=== PATIENT | female | born 2000 | race Caucasian/White ===

== ENCOUNTER 2021-03-09 07:34 | Inpatient (IN) | payer MEDICAID, OTHER ==
[2021-03-09] VITALS (47 sets, daily range): BP systolic 12–128; BP diastolic 51–90
[~2021-03-09] VITALS: Ht 160 cm; Wt 105.0 kg
[2021-03-09] MEDS ORDERED: D5 LR IV SOLUTION 1,000 ML IV ONE (07:57)
[2021-03-09] MEDS ORDERED: ACYC500V IV (08:01)
[2021-03-09] MEDS ORDERED: PREN-8 PO (08:01)
[2021-03-09] MEDS ORDERED: AMPICILLIN FOR IV USE 2,000 MG in WATER (STERILE) FOR INJECTION 14.8 ML IV SCH ×2 (08:07→08:09)
[2021-03-09] MEDS ORDERED: MINERAL OIL CONCENTRATE 99.9% 15 ML UDC TOP PRN (08:15)
[2021-03-09] MEDS ORDERED: D5 LR IV SOLUTION 1,000 ML IV SCH (08:15)
[2021-03-09 08:36] LABS: BASOPHILS % (AUTO) 0 % (0-10); EOSINOPHILS # (AUTO) 0.2 10^3/uL (0.0-0.3); EOSINOPHILS % (AUTO) 1 % (0-10); HEMATOCRIT 35 % (35-52); HEMOGLOBIN 11.5 g/dL (11.5-16.0); LYMPHOCYTES # (AUTO) 3.2 10^3/uL (1.0-4.0); LYMPHOCYTES % (AUTO) 21 % (12-44); MEAN CORPUSCULAR HEMOGLOBIN 27 pg (25-34); MEAN CORPUSCULAR HGB CONC 33 g/dL (32-36); MEAN CORPUSCULAR VOLUME 82 fL (80-99); MEAN PLATELET VOLUME 10.3 fL (9.0-12.2); MONOCYTES # (AUTO) 1.4 10^3/uL (0.0-1.0); MONOCYTES % (AUTO) 9 % (0-12); NEUTROPHILS # (AUTO) 10.3 10^3/uL (1.8-7.8); NEUTROPHILS % (AUTO) 68 % (42-75); PLATELET COUNT 294 10^3/uL (130-400); WHITE BLOOD COUNT 15.2 10^3/uL (4.3-11.0)
[2021-03-09] MEDS ORDERED: fentaNYL 2 mcg/ml BUPIVA 0.125 100 ML ONE (08:42)
[2021-03-09 08:46] LABS: EOSINOPHILS % (MANUAL) 1 %; LYMPHOCYTES % (MANUAL) 24 %; MONOCYTES % (MANUAL) 5 %; NEUTROPHILS % (MANUAL) 68 %; RBC MORPH NORMAL; REACTIVE LYMPHOCYTES 2 %
[2021-03-09] MEDS ORDERED: BUTORPHANOL INJ 2 MG/ML (STADOL) VIAL ONE (09:24)
[2021-03-09] MEDS ORDERED: BUTORPHANOL INJ 2 MG/ML (STADOL) VIAL IV ONE (09:30)
[2021-03-09] MEDS ORDERED: fentaNYL INJ 100 MCG/2 ML AMP ONE (09:35)
[2021-03-09] MEDS ORDERED: ONDANSETRON 4 MG/2 ML (SDV) Z0FRAN ONE (09:36)
[2021-03-09] MEDS ORDERED: BUPIVACAINE 0.25% 30 ML (SENSORCAINE) VIAL ONE (09:36)
[2021-03-09] MEDS ORDERED: fentaNYL INJ 100 MCG/2 ML AMP INJ ONE (10:45)
[2021-03-09] MEDS ORDERED: LACTATED RINGERS 1,000 ML IV ONE ×2 (10:45)
[2021-03-09] MEDS ORDERED: ONDANSETRON 4 MG/2 ML (SDV) Z0FRAN IV PRN (10:45)
[2021-03-09] MEDS ORDERED: EPIDURAL (fentaNYL 2 MCG/ML BUPIVA 0.125%)100 ML BAG EPI PRN (10:45)
[2021-03-09] MEDS ORDERED: NALOXONE 0.4 MG/ML 1 ML (NARCAN) VIAL IV PRN (10:45)
[2021-03-09] MEDS ORDERED: AMPICILLIN FOR IV USE 1,000 MG in WATER (STERILE) FOR INJECTION 7.4 ML IV SCH ×4 (12:15)
[2021-03-09] MEDS ORDERED: LIDOCAINE/EPI 2% 1:200,00 (XYLOCAINE) 20 ML VIAL ONE (13:39)
[2021-03-09] MEDS ORDERED: CATHETER FLUSH 10 ML SYR IV SCH ×2 (14:00→22:00)
--- NOTE | 2021-03-09 14:22 | History & Physical-OB ---
OB - Chief Complaint & HPI Date/Time Date of Admission: Date of Admission: March 09, 2021 at 08:07 Date seen by a Provider: March 09, 2021 Time Seen by a Provider: 08:30 Chief Complaint/History OB-Reason for Admission/Chief: Rupture of Membranes Hx : 2 Hx Para: 0 Expected Date of Delivery: Mar 13, 2021 Gestational Age in Weeks: 39 Gestational Age in Days: 3 Other reason for admission: 20 Year old at 39 6/7 weeks, no local patient, presents with complaint of rupture of membranes. She was 5 cm dilated on admission. Also reported to be GBS +, no allergies States that PNC was started in [place] and then she transferred to [place] at 34 weeks. She is reportedly visiting her grandmother in [place] this weekend. Reports having leakage of clear fluid at approximately 0600 today. No bleeding, good movement. Contractions every 3-4 minutes are moderate. On my evaluation, she is hanging on to the bedframe and requesting something for pain. is uncomplicated per the patient. Records were requested from [place] and have been reviewed. Last visit there was 03/04/2021 History of Labs Last US on February 11 with EFW 5#10 ounces. A-/- Rhogam 12/23/2020 GBE + History of Genital herpes with valacyclovir 500 mg po bid started on 02/04/2021 UDS + THC on 02/04/2021 TDaP 01/06/2021 RUB I VDRL NR HBsAg - HIV - Allergies and Home Medications Allergies Coded Allergies: No Known Drug Allergies (Unverified , 03/28/16) Home Medications Acyclovir Sodium 500 Mg Vial, 500 MG IV DAILY, (Reported) Last Action: New Order Vit W-Ca,Fe,FA(<1 mg) 1 Each Tablet, 1 EACH PO DAILY, (Reported) Last Action: New Order Patient Home Medication List Home Medication List Reviewed: Yes OB - History Hx of Present Ultrasounds: Normal mid trimester US Obstetrical Complications: None Medical Complications: None Information Induced Hypertension: No Maternal Gestational Diabetes: No Hemorrhage: No Obstetrical History Hx : 2 Hx Para: 0 Hx # Term Pregnancies: 0 Hx # Pregnancies: 0 Number of Living Children: 0 Hx Termination: No Hx Total # of Abortions (Spona: 1 Hx Multiple Gestation: No Hx Ectopic : No Hx Stillbirth: No Hx Complication: No Hx Induced Hypertens: No Hx Maternal Gestational Diabet: No Hx Hemorrhage: No Delivery History Hx Blood Disorders: No Adverse Rxn to Tranfusion: No Patient Past Medical History History of HSV, on Valtrex prophylaxis. Unk last outbreak Social History/Family History Alcohol Use: Denies Use Recreational Drug Use: Yes Smoking Cessation: Current every day smoker 2nd Hand Smoke Exposure: Yes Immunizations Hepatitis A: No Hepatitis B: Yes Tetanus Booster (TDap): Less than 5yrs (12/2020) Rubella: immune RPR/VDRL: Negative GBS Status: Positive HBsAG: Negative OB - Admission Exam Physical Exam Vitals: Vital Signs 03/09/21 03/09/21 11:26 13:40 Temp 36.4 Pulse 61 Resp 18 B/P (MAP) 107/60 (76) Pulse Ox 96 O2 Delivery Room Air Heart: Rhythm Normal Lungs: Clear Abdomen: Gravid Extremities: Edema Cervical Dilatation: 5cm Effacement: 75% Station: -2 Membranes: Ruptured Amniotic Fluid: Clear Heart Rate: 130's Accelerations: Accelerations Present Decelerations: No Decelerations Short Term Variability: Present Densitometer Reader Variability: Average (6-25) Contractions on Admission: < 5 Minutes Apart Labs Laboratory Tests Test 03/09/21 08:15 Range/Units White Blood Count 15.2 H 4.3-11.0 10^3/uL Red Blood Count 4.25 3.80-5.11 10^6/uL Hemoglobin 11.5 11.5-16.0 g/dL Hematocrit 35 35-52 % Mean Corpuscular Volume 82 80-99 fL Mean Corpuscular Hemoglobin 27 25-34 pg Mean Corpuscular Hemoglobin Concent 33 32-36 g/dL Red Cell Distribution Width 14.0 10.0-14.5 % Platelet Count 294 130-400 10^3/uL Mean Platelet Volume 10.3 9.0-12.2 fL Immature Granulocyte % (Auto) 1 % Neutrophils (%) (Auto) 68 42-75 % Lymphocytes (%) (Auto) 21 12-44 % Monocytes (%) (Auto) 9 0-12 % Eosinophils (%) (Auto) 1 0-10 % Basophils (%) (Auto) 0 0-10 % Neutrophils # (Auto) 10.3 H 1.8-7.8 10^3/uL Lymphocytes # (Auto) 3.2 1.0-4.0 10^3/uL Monocytes # (Auto) 1.4 H 0.0-1.0 10^3/uL Eosinophils # (Auto) 0.2 0.0-0.3 10^3/uL Basophils # (Auto) 0.0 0.0-0.1 10^3/uL Immature Granulocyte # (Auto) 0.1 0.0-0.1 10^3/uL Neutrophils % (Manual) 68 % Lymphocytes % (Manual) 24 % Monocytes % (Manual) 5 % Eosinophils % (Manual) 1 % Reactive Lymphocytes 2 % Blood Morphology Comment NORMAL OB - Assessment/Plan/Diagnosis Assessment Assessment: active labor, rupture of membranes Admission Dx Rupture of membranes 39 week gestation No local physician History of HSV Admission Status: Inpatient Order (span 2 midnights) Reason for Inpatient Admission: labor Plan Plan: Expectant Management (anticipate ), Other (Will obtain epidural when she is ready. Plan . No local Peds as she does not have local physican. Augmentation only as necessary) GURDEEP MELGOZA DO March 09, 2021 14:22
[2021-03-09] MEDS ORDERED: VALA500T7 PO (14:26)
[2021-03-09] MEDS ORDERED: OXYTOCIN PRE-MIX DRIP 500 ML IV ONE (15:10)
[2021-03-09] MEDS: OXYTOCIN PRE-MIX DRIP 500 ML IV SCH ×2 (15:37→16:49)
--- NOTE | 2021-03-09 15:50 | OB Labor & Delivery Record ---
Vag Delivery Note Vag Delivery Note Date of Delivery: 03/09/21 Preoperative Diagnosis: Mechelle Huddleston is a 20 /Para 2 / 0,Gestational Age 39 4/7 weeks with SROM, GBS +, H/o HSV on valacyclovir for prophylaxis (no active lesions noted on exam) Postoperative Diagnosis: Same Surgeon: GURDEEP MELGOZA Anesthesia: epidural Delivery Type: spontaneous vaginal Findings: Viable female , apgars 8/9, weight 6#13 ounces Lacerations: left anterior vaginal Intact placenta with 3 vessel cord. Nuchal cord/ body cord x 1 delivered through . No shoulder dystocia Estimated Blood Loss: 200 ml Complications: None Condition: Stable Description of Procedure: The patient is a 20 year old female who presented with complaint of rupture of membranes. She does not have a local physician as she is visiting from [place]. She was admitted and informed consent was obtained. Her labor course was remarkable for GBS prophylaxis with ampicillin (received 2 doses). She progressed to complete dilatation and began to push. She was then set up for delivery. The 's head was delivered atraumatically in the LULA position. The shoulders and remainder of the 's body were then delivered without difficulty. Upon delivery, the head was held below the level of the perineum and the mouth and nares were bulb suctioned. The cord was doubly clamped and cut and the infant was handed off to the pediatric staff. An intact placenta with 3-vessel cord delivered via Letty and there was found to be minimal bleeding.~ Vigorous fundal massage was performed and the fundus was found to be firm. IV oxytocin was given. Examination of the vagina and perineum revealed a left anterior labial laceration repaired with 1 figure of 8 stitch with 3-0 vicryl suture rapide. Following the repair, sponge, instrument and needle counts were correct. Mom and baby were both in stable condition in the labor suite. Vitals - Labs Vital Signs - I&O Vital Signs Date Time Temp Pulse Resp B/P (MAP) Pulse Ox O2 Delivery O2 Flow Rate FiO2 03/09/21 15:10 75 18 115/61 (79) Room Air 03/09/21 14:55 68 18 105/56 (72) Room Air 03/09/21 14:40 87 18 108/67 (81) Room Air 03/09/21 14:25 66 18 115/58 (77) Room Air 03/09/21 14:10 69 18 97/57 (70) Room Air 03/09/21 13:55 81 18 115/56 (75) Room Air 03/09/21 13:40 36.4 61 18 107/60 (76) Room Air 03/09/21 13:25 64 18 115/63 (80) Room Air 03/09/21 13:05 55 18 116/67 (83) Room Air 03/09/21 12:55 60 18 116/63 (80) Room Air 03/09/21 12:40 36.2 60 18 115/70 (85) Room Air 03/09/21 12:25 86 18 119/77 (91) Room Air 03/09/21 12:10 80 18 100/59 (73) Room Air 03/09/21 11:55 66 18 93/57 (69) Room Air 03/09/21 11:35 90 18 101/57 (72) Room Air 03/09/21 11:30 63 18 104/57 (73) Room Air 03/09/21 11:26 83 18 101/61 (74) 96 Room Air 03/09/21 11:23 67 18 107/59 (75) 96 Room Air 03/09/21 11:18 95 18 105/51 (69) 97 Room Air 03/09/21 11:10 67 18 108/58 (75) 95 Room Air 03/09/21 11:05 68 18 107/54 (71) 97 Room Air 03/09/21 11:00 66 18 109/53 (71) 97 Room Air 03/09/21 10:51 65 18 106/60 (75) 97 Room Air 03/09/21 10:48 76 18 105/59 (74) 97 Room Air 03/09/21 10:45 76 18 109/51 (70) 95 Room Air 03/09/21 10:39 82 18 110/58 (75) 95 Room Air 03/09/21 10:36 86 18 115/58 (77) 97 Room Air 03/09/21 10:33 91 18 104/60 (75) 97 Room Air 03/09/21 10:30 90 18 101/59 (73) 97 Room Air 03/09/21 10:27 36.3 76 18 98/55 (69) Room Air 03/09/21 10:24 80 18 105/56 (72) 96 Room Air 03/09/21 10:21 75 18 112/62 (79) 97 Room Air 03/09/21 10:18 82 18 107/62 (77) 97 Room Air 03/09/21 10:10 80 18 118/74 (89) 99 Room Air 03/09/21 09:35 84 18 122/90 (101) 03/09/21 07:52 36.5 104 18 96 Room Air Labs Laboratory Tests 03/09/21 08:15: White Blood Count 15.2H, Red Blood Count 4.25, Hemoglobin 11.5, Hematocrit 35, Mean Corpuscular Volume 82, Mean Corpuscular Hemoglobin 27, Mean Corpuscular Hemoglobin Concent 33, Red Cell Distribution Width 14.0, Platelet Count 294, Mean Platelet Volume 10.3, Immature Granulocyte % (Auto) 1, Neutrophils (%) (Auto) 68, Lymphocytes (%) (Auto) 21, Monocytes (%) (Auto) 9, Eosinophils (%) (Auto) 1, Basophils (%) (Auto) 0, Neutrophils # (Auto) 10.3H, Lymphocytes # (Auto) 3.2, Monocytes # (Auto) 1.4H, Eosinophils # (Auto) 0.2, Basophils # (Auto) 0.0, Immature Granulocyte # (Auto) 0.1, Neutrophils % (Manual) 68, Lymphocytes % (Manual) 24, Monocytes % (Manual) 5, Eosinophils % (Manual) 1, Reactive Lymphocytes 2, Blood Morphology Comment NORMAL GURDEEP MELGOZA March 09, 2021 15:50
[2021-03-09] MEDS ORDERED: WITCH HAZEL(TUCKS) 40 EA JAR TOP PRN (16:00)
[2021-03-09] MEDS ORDERED: BENZOCAINE/MENTHOL (DERMOPLAST) 56 ML CAN TP PRN (16:00)
[2021-03-09] MEDS ORDERED: MEASLES,MUMPS,RUBELLA 1 EA INJ SQ ONE (16:00)
[2021-03-09] MEDS ORDERED: TETANUS,DIPTH,PERTUSS P/F (BOOSTRIX) 0.5 ML VIAL IM ONE (16:00)
[2021-03-09] MEDS: IBUPROFEN 600 MG (MOTRIN) TAB PO SCH ×2 (17:44→23:29)
[2021-03-09] MEDS ORDERED: CLOTRIMAZOLE 1% CREAM (LOTRIMIN) 30 GM TOP SCH (21:00)
[2021-03-09] MEDS: DOCUSATE SODIUM 100 MG (COLACE) CAP PO SCH (21:17)
[2021-03-09] MEDS: ACETAMINOPHEN 500 MG TAB (TYLENOL) PO SCH (21:17)
[2021-03-09] MEDS ORDERED: BETAMETHASONE/CLOTRIM CREAM (LOTRISONE) 45 GM TP ONE (22:12)
[2021-03-10 03:54] LABS: BASOPHILS # (AUTO) 0.1 10^3/uL (0.0-0.1); BASOPHILS % (AUTO) 0 % (0-10); EOSINOPHILS # (AUTO) 0.2 10^3/uL (0.0-0.3); EOSINOPHILS % (AUTO) 2 % (0-10); HEMATOCRIT 30 % (35-52); HEMOGLOBIN 9.7 g/dL (11.5-16.0); LYMPHOCYTES # (AUTO) 3.8 10^3/uL (1.0-4.0); LYMPHOCYTES % (AUTO) 30 % (12-44); MEAN CORPUSCULAR HEMOGLOBIN 27 pg (25-34); MEAN CORPUSCULAR HGB CONC 32 g/dL (32-36); MEAN CORPUSCULAR VOLUME 84 fL (80-99); MEAN PLATELET VOLUME 10.3 fL (9.0-12.2); MONOCYTES # (AUTO) 1.4 10^3/uL (0.0-1.0); MONOCYTES % (AUTO) 11 % (0-12); NEUTROPHILS # (AUTO) 7.3 10^3/uL (1.8-7.8); NEUTROPHILS % (AUTO) 57 % (42-75); PLATELET COUNT 242 10^3/uL (130-400); WHITE BLOOD COUNT 12.8 10^3/uL (4.3-11.0)
[2021-03-10 04:18] VITALS: BP 112/63
[2021-03-10] MEDS: ACETAMINOPHEN 500 MG TAB (TYLENOL) PO SCH ×2 (04:18→12:22)
[2021-03-10] MEDS: IBUPROFEN 600 MG (MOTRIN) TAB PO SCH ×3 (06:41→18:29)
[2021-03-10] MEDS ORDERED: PRENATAL VITAMIN 1 EA TAB PO SCH (07:00)
[2021-03-10] MEDS ORDERED: FERROUS SULF 325 MG (IRON) TAB PO SCH (09:00)
[2021-03-10 09:30] VITALS: BP 106/58
[2021-03-10] MEDS: DOCUSATE SODIUM 100 MG (COLACE) CAP PO SCH (09:41)
--- NOTE | 2021-03-10 13:22 | Postpartum Progress Note ---
Note Note Day # 1 s/p GBS +, received 2 doses of Amp HSV +, prophylactic valacyclovir until delivery dermatitis Subjective: Patient is without complaints. Ambulating, voiding. Tolerating a regular diet without nausea or vomiting. Normal lochia. Pain is well controlled with oral pain medications. [] feeding. Circular lesions with central clearing noticed on her foot at delivery. she states she had been given a nystatin powder to use on it bc was told it is a fungus. However, she has other lesions and these appear to be tinea. Treated with clortrimazole. However, initially payroll supervisor brought up betamethasone/clortrimazole. This works as well, but will send with rx for clotrimazole. Nystatin does not treat tinea. Would be effective for the creases which are likely fungal. Objective: 03/10/21 03/10/21 04:18 09:30 Temp 36.2 36.5 Pulse 73 91 Resp 18 18 B/P (MAP) 112/63 (79) 106/58 (74) Pulse Ox 97 99 O2 Delivery Room Air Room Air 03/10/21 00:00 Intake Total 1507.4 ml Balance 1507.4 ml Laboratory Tests Test 03/10/21 03:36 Range/Units White Blood Count 12.8 H 4.3-11.0 10^3/uL Red Blood Count 3.61 L 3.80-5.11 10^6/uL Hemoglobin 9.7 L 11.5-16.0 g/dL Hematocrit 30 L 35-52 % Mean Corpuscular Volume 84 80-99 fL Mean Corpuscular Hemoglobin 27 25-34 pg Mean Corpuscular Hemoglobin Concent 32 32-36 g/dL Red Cell Distribution Width 14.0 10.0-14.5 % Platelet Count 242 130-400 10^3/uL Mean Platelet Volume 10.3 9.0-12.2 fL Immature Granulocyte % (Auto) 0 % Neutrophils (%) (Auto) 57 42-75 % Lymphocytes (%) (Auto) 30 12-44 % Monocytes (%) (Auto) 11 0-12 % Eosinophils (%) (Auto) 2 0-10 % Basophils (%) (Auto) 0 0-10 % Neutrophils # (Auto) 7.3 1.8-7.8 10^3/uL Lymphocytes # (Auto) 3.8 1.0-4.0 10^3/uL Monocytes # (Auto) 1.4 H 0.0-1.0 10^3/uL Eosinophils # (Auto) 0.2 0.0-0.3 10^3/uL Basophils # (Auto) 0.1 0.0-0.1 10^3/uL Immature Granulocyte # (Auto) 0.1 0.0-0.1 10^3/uL Physical Exam: General - Alert and oriented, no apparent distress Abdomen - Soft, appropriately tender to palpation, non-distended, fundus firm at umbilicus Extremities - no edema, negative Manjula's bilaterally Assessment: 1. post- day # 1, status post spontaneous vaginal delivery. Recovering well, hemodynamically stable 2. Acute blood loss anemia 3. Dermatitis - tinea/dermatophyte and Intertrigal dermatitis Plan: Routine care. Encourage breast feeding. Encourage ambulation. Ferrous sulfate supplementation. Plan for discharge [] Vitals - Labs Vital Signs - I&O Vital Signs Date Time Temp Pulse Resp B/P (MAP) Pulse Ox O2 Delivery O2 Flow Rate FiO2 03/10/21 09:30 36.5 91 18 106/58 (74) 99 Room Air 03/10/21 04:18 36.2 73 18 112/63 (79) 97 Room Air 03/09/21 23:29 36.2 75 18 105/57 (73) 98 Room Air 03/09/21 21:17 36.0 69 18 118/56 (76) 98 Room Air 03/09/21 17:21 36.5 18 102/56 (71) Room Air 03/09/21 17:06 80 18 103/51 (68) Room Air 03/09/21 16:51 73 18 115/54 (74) Room Air 03/09/21 16:36 82 18 119/58 (78) Room Air 03/09/21 16:21 66 18 104/61 (75) Room Air 03/09/21 16:06 63 18 102/61 (75) Room Air 03/09/21 15:51 98 18 120/67 (84) Room Air 03/09/21 15:40 98 18 109/53 (71) Room Air 03/09/21 15:25 35.7 101 18 128/59 (82) Room Air 03/09/21 15:10 75 18 115/61 (79) Room Air 03/09/21 14:55 68 18 105/56 (72) Room Air 03/09/21 14:40 87 18 108/67 (81) Room Air 03/09/21 14:25 66 18 115/58 (77) Room Air 03/09/21 14:10 69 18 97/57 (70) Room Air 03/09/21 13:55 81 18 115/56 (75) Room Air 03/09/21 13:40 36.4 61 18 107/60 (76) Room Air 03/09/21 13:25 64 18 115/63 (80) Room Air I & O 03/10/21 07:00 Intake Total 2537.0 ml Balance 2537.0 ml Labs Laboratory Tests 03/10/21 03:36: White Blood Count 12.8H, Red Blood Count 3.61L, Hemoglobin 9.7L, Hematocrit 30L, Mean Corpuscular Volume 84, Mean Corpuscular Hemoglobin 27, Mean Corpuscular Hemoglobin Concent 32, Red Cell Distribution Width 14.0, Platelet Count 242, Mean Platelet Volume 10.3, Immature Granulocyte % (Auto) 0, Neutrophils (%) (Auto) 57, Lymphocytes (%) (Auto) 30, Monocytes (%) (Auto) 11, Eosinophils (%) (Auto) 2, Basophils (%) (Auto) 0, Neutrophils # (Auto) 7.3, Lymphocytes # (Auto) 3.8, Monocytes # (Auto) 1.4H, Eosinophils # (Auto) 0.2, Basophils # (Auto) 0.1, Immature Granulocyte # (Auto) 0.1 GURDEEP MELGOZA DO March 10, 2021 13:22
[2021-03-10] MEDS ORDERED: ACET-93 PO (13:23)
[2021-03-10] MEDS ORDERED: FERR325T24 PO (13:23)
[2021-03-10] MEDS ORDERED: IBUP-844 PO (13:23)
--- NOTE | 2021-03-10 13:24 | Discharge Inst-Women's Service ---
Discharge Inst-Women's Serv Depart Medication/Instructions New, Converted or Re-Newed RX: RX on Chart Final Diagnosis spontaneous labor GBS + Vaginal delivery h/o HSV dermatitis Problems Reviewed?: Yes Consults/Follow Up Additional Follow Up: Yes (follow up with Dr. Pearce in 4-6 weeks to discuss family planning. [phone]) Activity Activity: Activity as Tolerated Driving Instructions: You May Drive NO SMOKING: NO SMOKING Nothing Inside Vagina: No Douching, No [place], No Tampons Diet Discharge Diet: No Restrictions Symptoms to Report to : Swelling Increased, Bleeding Excessive, Fever Over 101 Degrees F, Vaginal Bleeding Increase, Cramps in Feet or Legs, Vaginal Discharge Foul For Any Problems or Questions: Contact Your Physician Skin/Wound Care Bathing Instructions: GURDEEP Lo DO March 10, 2021 13:24
[2021-03-10] MEDS ORDERED: CLOT15CR28 TOP (13:47)
[2021-03-10 14:16] VITALS: BP 99/56
[2021-03-10 18:25] VITALS: BP 98/61
== END 2021-03-10 20:30 | disposition home or self-care (01) | DRG 806 ==
LOC: WSo 07:34 → LDRP 07:41 → WSo 08:07 → LDRP 18:15
PROVIDERS: ADMIT Obstetrics & Gynecology; ATTEND Obstetrics & Gynecology
PROC: 10E0XZZ Delivery of Products of Conception, External Approach (ICD-10-PCS; principal; 2021-03-09)
PROC: 0HQ9XZZ Repair Perineum Skin, External Approach (ICD-10-PCS; 2021-03-09)
DX: O99.824 Streptococcus B carrier state complicating childbirth (principal); O98.32 Other infections with a predominantly sexual mode of transmission complicating childbirth; Z37.0 Single live birth; D62 Acute posthemorrhagic anemia; O70.0 First degree perineal laceration during delivery; Z3A.39 39 weeks gestation of pregnancy; A60.09 Herpesviral infection of other urogenital tract; O99.333 Smoking (tobacco) complicating pregnancy, third trimester; F17.200 Nicotine dependence, unspecified, uncomplicated; O90.81 Anemia of the puerperium; O69.81X0 Labor and delivery complicated by cord around neck, without compression, not applicable or unspecified; B35.3 Tinea pedis; L30.9 Dermatitis, unspecified; O99.713 Diseases of the skin and subcutaneous tissue complicating pregnancy, third trimester; Z79.899 Other long term (current) drug therapy
CPT/HCPCS: 36415; 83033; 85007; 85025; 85027; 86850; 86900; 86901; 99212

== ENCOUNTER 2022-01-09 21:02 | Emergency (ER) | payer MEDICAID ==
[~2022-01-09] VITALS: Ht 160 cm; Wt 86.1 kg
[~2022-01-09 21:02] MED LIST: ACET-93 PO; ACYC500V IV; CLOT15CR28 TOP; FERR325T24 PO; IBUP-844 PO; PREN-8 PO; VALA500T7 PO
[2022-01-09 21:41] VITALS: BP 118/79
[2022-01-09] MEDS ORDERED: NF-CIPROHC OT (21:54)
--- NOTE | 2022-01-09 21:55 | ED EENT ---
History of Present Illness General Chief Complaint: Ear Problems Stated Complaint: EAR ACHE Nursing Triage Note: pt ambulatory to room. pt states she has had an earache in the left ear for 2 1/2 months. pt has not been seen or treated for this prior. Source: patient Exam Limitations: no limitations History of Present Illness Date Seen by Provider: Jan 09, 2022 Time Seen by Provider: 21:37 Initial Comments Patient presents ER by private conveyance with chief complaint of 2 months of swelling redness minimal discharge from the left eardrum. She is not been on antibiotics or seen any doctor for. She does not have a primary care doctor. No significant medical or surgical history. She is been using Tylenol for her pain Allergies and Home Medications Allergies Coded Allergies: No Known Drug Allergies (Unverified , 03/28/16) Patient Home Medication List Home Medication List Reviewed: Yes Acetaminophen (Acetaminophen) 500 Mg Tablet, 1,000 MG PO Q8HR Prescribed by: GURDEEP MELGOZA on 03/10/21 1323 Clotrimazole (Clotrimazole) 15 Gm Cream..g., 0 GM TOP BID Prescribed by: GURDEEP MELGOZA on 03/10/21 1347 Ferrous Sulfate (Ferosul) 325 Mg Tablet, 325 MG PO DAILY Prescribed by: GURDEEP MELGOZA on 03/10/21 1323 Ibuprofen (Ibu) 600 Mg Tablet, 600 MG PO Q6HR Prescribed by: GURDEEP MELGOZA on 03/10/21 1323 Vit W-Ca,Fe,FA(<1 mg) ( Formula) 1 Each Tablet, 1 EACH PO DAILY, (Reported) Entered as Reported by: RACHEL WERNER on 03/09/21 0801 Review of Systems Review of Systems Constitutional: No chills, No diaphoresis Eyes: Denies Blindness, Denies Blurred Vision Ears: See HPI; Denies Dizziness; Pain Nose: denies clots, denies congestion Mouth: denies clots, denies loose teeth Respiratory: No cough, No phlegm Cardiovascular: No chest pain, No palpitations All Other Systems Reviewed Negative Unless Noted: Yes Past [id number]-[id number] Hx Patient Social History Tobacco Use?: No Use of E-Cig and/or Vaping dev: No Immunizations Up To Date Tetanus Booster (TDap): Less than 5yrs PED Vaccines UTD: Yes Past Medical History Female Reproductive Disorders: Denies Depression Adverse Reaction/Blood Tranf: No Physical Exam Vital Signs Vital Signs - First Documented 01/09/22 21:41 Temp 36.8 Pulse 96 Resp 16 B/P (MAP) 118/79 (92) Pulse Ox 100 Height, Weight, BMI Height: 5'4" Weight: 184lbs. oz. [id number]; 33.00 BMI Method:Actual General Appearance: WD/WN, no apparent distress Eyes: bilateral eye normal inspection, bilateral eye PERRL, bilateral eye EOMI Ears: right ear canal normal; left ear erythema, left ear swelling; bilateral ear auricle normal, bilateral ear TM normal Nose: normal inspection; No active bleeding Mouth/Throat: normal mouth inspection, pharynx normal Neck: non-tender, full range of motion, supple, normal inspection Cardiovascular: normal peripheral pulses, regular rate, rhythm Respiratory: no respiratory distress, no accessory muscle use Neurologic/Psychiatric: alert, normal mood/affect Progress/Results/Core Measures Results/Orders My Orders Orders - ALICE ORTEGA Cefdinir Capsule (Omnicef Capsule) (01/09/22 22:00) Vital Signs/I&O 01/09/22 21:41 Temp 36.8 Pulse 96 Resp 16 B/P (MAP) 118/79 (92) Pulse Ox 100 Blood Pressure Mean: 92 Departure Impression Primary Impression: Otitis externa Qualified Codes: H60.392 - Other infective otitis externa, left ear Disposition: 01 HOME, SELF-CARE Condition: Stable Departure-Patient Inst. Decision time for Depature: 21:51 Referrals: NO,LOCAL PHYSICIAN (PCP) Primary Care Physician KEATON SHEPARD MD (Family) Primary Care Physician Patient Instructions: How to Use Ear Drops, Outer Ear Infection Add. Discharge Instructions: 3 drops to the affected ear twice a day for 10 days. Return to your doctor for increasing pain fever above 102.5 or no improvement after 7 to 10 days. Tylenol 1000 mg every 8 hours necessary for pain. Ibuprofen 800 mg every 8 hours necessary for pain. Heat applied to your ear may be helpful for pain. Expect to see improvement after 3 to 4 days of antibiotics. All discharge instructions reviewed with patient and/or family. Voiced understanding. Scripts Ciprofloxacin/Hydrocortisone (Cipro Hc Otic Suspension) 1 Ea Susp 3 DROPS OT BID for 10 Days, #1 EA 0 Refills Prov: ALICE ORTEGA 01/09/22 ALICE ORTEGA Jan 09, 2022 21:55
[2022-01-09] MEDS ORDERED: CEFDINIR 300 MG (OMNICEF) CAP PO ONE (22:00)
== END 2022-01-09 22:26 | disposition home or self-care (01) ==
LOC: EDUNIT# 21:02 → ER 21:05
DX: H60.392 Other infective otitis externa, left ear (principal)
CPT/HCPCS: 99283